=== PATIENT | female | born 1980 | race African-American/Black ===

== ENCOUNTER 2020-11-02 03:28 | Emergency (ER) | payer MEDICARE, MEDICAID ==
[~2020-11-02] VITALS: Ht 172.7 cm; Wt 97.0 kg
[2020-11-02] MEDS ORDERED: KETOROLAC 60MG/2ML VIAL IM ONE (04:00)
[2020-11-02 04:12] LABS: BASOPHILS % 1.1 % (0.0-2.0); HEMATOCRIT. 39.2 % (36.0-48.0); HEMOGLOBIN. 13.3 g/dL (12.0-16.0); MEAN CORPUSCULAR HEMOGLOBIN 27.9 pg (28.0-32.0); MEAN CORPUSCULAR VOLUME 82.5 fL (81.0-99.0); MEAN PLATELET VOLUME 8.1 fl (7.4-10.4); NEUTROPHILS % 56.9 % (40.0-76.0); PLATELET 267 x1000/uL (130-400); RED BLOOD CELL COUNT 4.76 mill/uL (4.2-5.4); RED CELL DISTRIBUTION WIDTH 13.9 % (11.6-14.6)
[2020-11-02 04:19] LABS: CHLORIDE 108 mEq/L (98-107)
[2020-11-02 04:43] LABS: CLARITY URINE CLOUDY (CLEAR); COLOR URINE YELLOW (YELLOW); KETONES URINE NEGATIVE (NEGATIVE); LEUKOCYTE ESTERASE URINE TRACE (NEGATIVE); NITRITE URINE NEGATIVE (NEGATIVE); OCCULT BLOOD URINE 3+ (NEGATIVE); PROTEIN URINE NEGATIVE (NEGATIVE); SPECIFIC GRAVITY URINE 1.012 (1.005-1.030); UROBILINOGEN URINE 0.2 E.U./dL (0.2-1.0)
[2020-11-02] MEDS ORDERED: IBUP-2028 MT (06:05)
[2020-11-02] MEDS ORDERED: TAMS-11 PO (06:06)
[2020-11-02] MEDS ORDERED: TRAMADOL 50MG TABLET PO ONE (06:15)
[2020-11-02 06:18] VITALS: BP 157/91
== END 2020-11-02 06:20 | disposition home or self-care (01) ==
LOC: ER 03:28
DX: R10.9 Unspecified abdominal pain (principal); N20.0 Calculus of kidney; K58.9 Irritable bowel syndrome, unspecified
CPT/HCPCS: 36415; 76700; 80053; 81003; 81025; 83690; 85025; 93005; 96372; 99285; J1885